=== PATIENT | female | born 1970 | race Two or more races ===

== ENCOUNTER 2017-03-20 09:40 | Day surgery (SDC) | payer OTHER ==
[2017-03-19 18:42] VITALS: BMI 24.5
[~2017-03-20] VITALS: Ht 147.3 cm; Wt 54.2 kg
[2017-03-20] VITALS (23 sets, daily range): BP systolic 101–143; BP diastolic 66–83; PULSE 50–76; RESP 15–20; Ht 147.3 cm; Wt 54.2 kg
[~2017-03-20 09:40] MED LIST: CEFAZOLIN 1 GM INJ ONE; IBUP-1542 PO; LORA10CA PO; OMEP20CA16 PO; ZOC10 PO
[2017-03-20] MEDS ORDERED: MIDAZOLAM 1 MG/ML 2 ML INJ ONE (11:56)
--- NOTE | 2017-03-20 12:07 | HPN ---
Date/Time of Note Date/Time of Note DATE: 03/20/17 TIME: 12:06 Interval H&P Admission Note Pt. seen H&P reviewed: No system changes BIA ENGLE MD Mar 20, 2017 12:07
[2017-03-20] MEDS ORDERED: MEPERIDINE 25 MG INJ IV PRN (13:00)
[2017-03-20] MEDS ORDERED: FENTAnyl 50 MCG/ML VIAL IV PRN (13:00)
[2017-03-20] MEDS ORDERED: DIPHENHYDRAMINE 50 MG INJ IV PRN (13:00)
[2017-03-20] MEDS ORDERED: LIDOCAINE 2% (SDV) 5 ML INJ ONE (13:09)
[2017-03-20] MEDS ORDERED: SUCCINYLCHOLINE CHLORIDE 100 MG/5 ML SYG IV ONE (13:09)
[2017-03-20] MEDS ORDERED: PROPOFOL 20 ML ONE (13:09)
[2017-03-20] MEDS ORDERED: ONDANSETRON 4 MG INJ ONE (13:11)
[2017-03-20] MEDS ORDERED: HYDROCODONE/APAP (5/325) TAB PO PRN (13:30)
--- NOTE | 2017-03-20 13:37 | OPR ---
Date/Time of Note Date/Time of Note DATE: 03/20/17 TIME: 13:33 Operative Report Procedure Date: Mar 20, 2017 Preoperative Diagnosis Left thyroid nodule. Postoperative Diagnosis Follicular lesion, favor benign, defer to permanent. Operation Performed Left total thyroid lobectomy. Surgeon: BIA ENGLE MD Anesthesia: general Estimated Blood Loss: 10 - 50 ml's Specimens Left thyroid lobe Complications: None Pt Condition Post Procedure: stable Disposition: PACU Indications Left thyroid mass, FNA inconclusive. Operative\Procedure Findings Soft large left thyroid mass. Frozen section favors benign follicular lesion. Procedure Description Description of procedure: The patient was identified in the holding area. We had a discussion to confirm understanding of indications, risks, benefits, alternatives and postoperative care associated with the operation. Informed consent was signed. The patient was taken the operating room and placed supine on the operating table. General endotracheal anesthesia was achieved with recurrent laryngeal nerve monitor capable endotracheal tube and recurrent laryngeal nerve monitoring was performed throughout the duration of the case. A shoulder roll was placed. The neck was prepped and draped in normal sterile fashion. A 15 blade was used to make a horizontal incision in a preexisting cervical crease. Subplatysmal flaps were elevated circumferentially. The midline raphe between the strap muscles was identified and vertically divided using monopolar cautery. The left sided strap muscles were elevated off the thyroid lobe. Dissection was very easy as there were no adhesions or signs of invasion.The superior pole of the thyroid gland was identified and bluntly dissected free to isolate the superior laryngeal nerve and the super pole vascular pedicle. The nerve was kept intact as the vessels were individually ligated and transected with the Liga-sure small jaw. In addition ties were used to assure continued hemostasis. More inferiorly, the middle thyroid vein was taken after careful ligation and transection and dissection in the tracheoesophageal groove was used to identify the recurrent laryngeal nerve. It was followed superiorly to the cricothyroid joint and in this area the the superior parathyroid gland was identified. The parathyroid was carefully dissected laterally saving the pedicle after which overlying thyroid tissue was from its fibrous attachments to the surrounding soft tissues with the bipolar forceps. More inferior dissection was used to free the entirety of the recurrent laryngeal nerve. The inferior parathyroid and surrounding fat pad was at this point identified and swept laterally, again sparing the pedicle. Careful inspection and palpation of the level 6 didier basin at this point revealed no suspicious adenopathy. The thyroidectomy commenced in a lateral to medial fashion, dissecting the thyroid gland off of the recurrent nerve towards the trachea after which it was transected past the isthmus and sent for evaluation by pathology. Pathology came back with a diagnosis of follicular lesion favor benign so decision was made to close. The wound was irrigated with copious amounts of saline. Valsalva was performed. There was no bleeding or oozing. A 3 -0 Vicryl was used to reapproximate the strap muscles in midline after which the same suture was used to reapproximate the platysma in interrupted buried fashion. Running 4-0 Monocryl was used to reapproximate the skin. The patient tolerated the procedure well and was extubated, taken to PACU in stable condition. Complications: None BIA ENGLE MD Mar 20, 2017 13:37
[2017-03-20] MEDS: ONDANSETRON 4 MG INJ IV PRN ×2 (14:13→16:38)
== END 2017-03-20 17:45 | disposition home or self-care (01) ==
LOC: SDS 09:40
PROVIDERS: ATTEND Otolaryngology
DX: D34 Benign neoplasm of thyroid gland (principal); E06.3 Autoimmune thyroiditis
CPT/HCPCS: 60220; 88307; 88331; J0690; J2250; J2405; J3010; J7999; Z7512; Z7610